=== PATIENT | male | born 1950 | race Caucasian/White ===

== ENCOUNTER 2016-08-22 11:42 | Day surgery (SDC) | payer MEDICARE, OTHER ==
[~2016-08-22] VITALS: Ht 185.4 cm; Wt 98.5 kg
[~2016-08-22 11:42] MED LIST: ASPIRIN 81M81 MG/TA2 PO; CIPRO 500MG TA500 MG PO; COQ10150 MG PO; CRESTOR 10MG10 MG PO; FLOMAX 0.40.4 MG/CAP PO; GLUCOSAMINE & C1 CA1 PO; MULTIPLE VITAMI1 CAP PO; PROSCAR 5MG5 MG PO
[2016-08-22 12:52] VITALS: BP 149/78; PULSE 77; TEMP 97.7
[2016-08-22] MEDS ORDERED: VITAMIN D32000 IU PO (13:02)
[2016-08-22] MEDS ORDERED: THE MEDICINE S200 M2 PO (13:04)
[2016-08-22] MEDS ORDERED: CIPRO 500MG TA500 MG PO (13:06)
[2016-08-22] MEDS ORDERED: PYRIDIUM 100MG100 MG PO (13:06)
[2016-08-22 17:45] VITALS: BP 133/72; PULSE 65
[2016-08-22 18:00] VITALS: BP 131/62; PULSE 67
[2016-08-22 18:15] VITALS: BP 130/70; PULSE 60
[2016-08-22 19:55] VITALS: BP 132/75; PULSE 73
[2016-08-22 21:51] VITALS: BP 128/64; PULSE 71; TEMP 97.6
[2016-08-23 01:35] VITALS: BP 109/64; PULSE 71; TEMP 97.7
[2016-08-23 04:56] VITALS: BP 114/62; PULSE 74; TEMP 98.2
[2016-08-23 09:28] VITALS: BP 124/73; PULSE 86; TEMP 98.1
[2016-08-23 14:28] VITALS: BP 120/54; PULSE 84; TEMP 98.2
== END 2016-08-23 14:38 | disposition home or self-care (01) ==
LOC: SDCO 11:42 → SURG 17:49 → SDCO 08-23 14:38
DX: N21.0 Calculus in bladder (principal); N40.1 Benign prostatic hyperplasia with lower urinary tract symptoms; R35.0 Frequency of micturition; R39.15 Urgency of urination; R39.12 Poor urinary stream; R97.20 Elevated prostate specific antigen [PSA]; Z85.51 Personal history of malignant neoplasm of bladder; E11.9 Type 2 diabetes mellitus without complications; E78.5 Hyperlipidemia, unspecified
CPT/HCPCS: J1100; J2405; J2704; J3010; J7120; Q9967

== ENCOUNTER 2020-10-17 15:34 | Day surgery (SDC) | payer MEDICARE, OTHER ==
[~2020-10-17] VITALS: Ht 185.4 cm; Wt 90.0 kg
[2020-10-17] VITALS (9 sets, daily range): BP systolic 149–198; BP diastolic 73–94; PULSE 66–91; TEMP 97.6–98.2
[~2020-10-17 15:34] MED LIST changes: +PYRIDIUM 100MG100 MG PO; +THE MEDICINE S200 M2 PO; +VITAMIN D32000 IU PO
[2020-10-17] MEDS ORDERED: THE MEDICINE S200 M2 PO (16:46)
[2020-10-17] MEDS ORDERED: VITAMIN C500 MG PO (16:50)
[2020-10-17] MEDS ORDERED: GLUCOPHAGE XR500 M1 PO (16:50)
[2020-10-17] MEDS ORDERED: VITAMIN D31000 IU PO (16:53)
[2020-10-17] MEDS ORDERED: NATURAL E400 IU PO (16:54)
[2020-10-17] MEDS ORDERED: FISH OIL 1000MG1 CAP PO (16:55)
[2020-10-17] MEDS ORDERED: PYRIDIUM 100MG100 MG PO (19:14)
[2020-10-17] MEDS ORDERED: NORCO 325 MG-51 TAB PO (19:14)
--- NOTE | 2020-10-17 20:00 | NUR ---
Patient up from PACU. No complaints of pain at this time. Blood pressure was 193/83 and then 207/83. Dr. Ayoub was notified. New orders for 10 mg of hydralazine and 20 mg of Lasix.
--- NOTE | 2020-10-17 22:00 | NUR ---
Patient's blood pressure has been coming down some. Patient is voiding without difficulty. Urine is red, no clots noted. Patient continent of loose stool. Percocet given for pain. 96% on room air. No other needs at this time.
[2020-10-18 03:59] VITALS: BP 139/78; PULSE 72; TEMP 97
--- NOTE | 2020-10-18 06:18 | NUR ---
PAtient reports still having some blood in his urine this morning. Percocet administered PRN for pain. No other needs at this time. Will report off to day shift.
[2020-10-18 07:27] VITALS: BP 145/67; PULSE 82; TEMP 98
--- NOTE | 2020-10-18 10:51 | NUR ---
Patient alert and oriented, answers questions appropriately. See assessment. Patient voiding moderate amounts of bloody urine, no clots noted. Encouraged oral intake. No c/o burning, frequency or hesitancy with urination. No c/o at this time.
[2020-10-18 11:10] VITALS: BP 173/82; PULSE 80; TEMP 97.5
--- NOTE | 2020-10-18 12:16 | NUR ---
First visit from the supervisor hot [employer]. No needs right now.
--- NOTE | 2020-10-18 13:58 | NUR ---
Discharge instructions reviewed with patient and spouse, verbalized understanding. Discharged via wheelchair to auto/home with spouse at 1358.
== END 2020-10-18 13:58 | disposition home or self-care (01) ==
LOC: SDCO 15:34 → SURG 20:10 → SDCO 10-18 13:58
DX: C67.4 Malignant neoplasm of posterior wall of bladder (principal); N20.2 Calculus of kidney with calculus of ureter; R31.21 Asymptomatic microscopic hematuria; E11.9 Type 2 diabetes mellitus without complications; E78.5 Hyperlipidemia, unspecified; Z86.010 Personal history of colon polyps; Z90.89 Acquired absence of other organs; Z79.82 Long term (current) use of aspirin; Z79.899 Other long term (current) drug therapy; Z79.84 Long term (current) use of oral hypoglycemic drugs; Z20.822 Contact with and (suspected) exposure to COVID-19
CPT/HCPCS: OP; C1769; C1894; C2617; J0360; J0690; J1100; J1940; J2405; J2704; J3010; J7120; Q9967

== ENCOUNTER 2022-02-06 15:30 | Observation (INO) | payer MEDICARE, OTHER ==
[~2022-02-06] VITALS: Ht 185.4 cm; Wt 81.4 kg
[~2022-02-06 15:30] MED LIST changes: +FISH OIL 1000MG1 CAP PO; +GLUCOPHAGE XR500 M1 PO; +NATURAL E400 IU PO; +NORCO 325 MG-51 TAB PO; +VITAMIN C500 MG PO; +VITAMIN D31000 IU PO
[2022-02-07] VITALS (11 sets, daily range): BP systolic 102–134; BP diastolic 48–62; PULSE 43–61; TEMP 97.7–98.9
[2022-02-07 10:11] LABS: CALCIUM 10.4 mg/dL (8.4-10.2); CREATININE, serum 1.27 mg/dL (0.72-1.25); POTASSIUM 4.2 mmol/L (3.5-4.5)
[2022-02-07] MEDS ORDERED: TYLENOL 500MG500 MG PO (11:02)
[2022-02-07] MEDS ORDERED: VITAMINC1000TA PO (11:03)
[2022-02-07] MEDS ORDERED: COREG 6.256.25 MG/TA PO (11:04)
[2022-02-07] MEDS ORDERED: JARDIANCE10 PO (11:05)
[2022-02-07] MEDS ORDERED: MELATONIN5 M1 PO (11:06)
[2022-02-07] MEDS ORDERED: GLUCOPHAGE500 MG/TAB PO (11:08)
[2022-02-07] MEDS ORDERED: CORLANOR5 MG PO (11:08)
[2022-02-07] MEDS ORDERED: JOINT RELIEF PO (11:09)
[2022-02-07] MEDS ORDERED: SINGULAIR 110 MG/TAB PO (11:10)
[2022-02-07] MEDS ORDERED: MULTI VITAMINS1 TAB PO (11:11)
[2022-02-07] MEDS ORDERED: NITROSTAT0.4 MG/TAB SL (11:13)
[2022-02-07] MEDS ORDERED: CRESTOR40 MG PO (11:14)
[2022-02-07] MEDS ORDERED: ENTRESTO 24 MG1 EACH PO (11:15)
[2022-02-07] MEDS ORDERED: ALDACTONE 25MG25 M1 PO (11:16)
[2022-02-07] MEDS ORDERED: BRILINTA90 MG PO (11:17)
[2022-02-07] MEDS ORDERED: THE MEDICINE S200 M2 PO (11:20)
--- NOTE | 2022-02-07 12:20 | NUR ---
PATIENT ADMITED INTO ROOM 331 POST OP. ORIENTED BUT DROWSY. NOTED HR IN 40-50'S ON TELE. PATIENT HAS HX OF CHF. ALL OTHER VSS. DENIES COMPLAINTS. LIQUIDS AT BEDSIDE. IV FLUIDS INFUSING VIA PUMP INTO LEFT HAND IV. DAVE TO DD WITH SMALL AMOUNTS OF CLEAR YELLOW URINE. CBI INFUSING AT MOD RATE. SCD'S TO BLE. HEAD TO TOE ASSESSMENT COMPLETE. AT BEDSIDE. ORIENTED TO ROOM. CALL LIGHT IN REACH.
--- NOTE | 2022-02-07 13:30 | NUR ---
AT BEDSIDE, SEE ORDERS.
--- NOTE | 2022-02-07 16:55 | NUR ---
CALLED AND REQUESTED PATIENT BE STARTED ON HEPARIN GTT AT 900 UNITS/HR. NO BOLUS. NO LABS PRIOR. RECHECK COAGULATION 4 HOURS AFTER STARTING GTT THEN, START LOW DOSE HEPARIN GTT PROTOCOL. CALLED AND TALKED WITH PHARMACY. CALLED AND CLARIFIED ORDERS WITH CARDIOLOGY AGAIN. TALKED WITH BINDER LOCKSTITCH. SEE ORDERS.
--- NOTE | 2022-02-07 19:34 | NUR ---
RECEIVED CHANGE OF SHIFT REPORT FROM DAY SHIFT RN.
[2022-02-08 03:14] VITALS: BP 105/50; PULSE 56; TEMP 97.6
--- NOTE | 2022-02-08 06:54 | NUR ---
CHANGE OF SHIFT REPORT GIVEN TO DAY SHIFT RNMIRIAM.
[2022-02-08 07:40] VITALS: BP 110/60; PULSE 59; TEMP 98.3
--- NOTE | 2022-02-08 08:00 | NUR ---
PATIENT IS A&O. VSS ON TELE. DENIES COMPLAINTS. DAVE TO DD WITH MOD AMOUNTS OF CLEAR YELLOW URINE. CBI DC'D PER UROLOGY. ALSO DC'D HEPARIN GTT AND RESTARTED PATIENT'S HOME ANTICOAGULATION THERAPY PER UROLOGY & CARDS, SEE MAR. NO C/O N/V. LEFT HAND IV TO INT. HEAD TO TOE ASSESSMENT WNL. AM MEDS GIVEN. BREAKFAST TRAY AT BEDSIDE. SCD'S TO BLE. PATIENT IS INDEPENDENT IN ROOM. CALL LIGHT IN REACH.
--- NOTE | 2022-02-08 10:52 | NUR ---
structural steel ironworker met with patient to complete intake and discuss discharge plan. Patient reports that he lives at home in [place] with his Symone ([phone]). Patient states that they also have a house here at the [place] and will be staying there through the weekend. Patient is independent with his ADL's and does not utilize any DME to assist with mobility. He reports that he had "complete heart failure" on November and underwent a stent placement. He has also had multiple bladder tumors in the past but is not currently on chemo or seeing an oncologist. He has no home oxygen needs. PCP is Dr.Tyson Ortez and he utilizes [facility] for a local pharmacy and [facility] for prescriptions. 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 Patient is planning on returning home once medically ready. Discharge plan: Home
--- NOTE | 2022-02-08 11:02 | NUR ---
Initial visit; Patient thanked Career Representative for looking in on him and talking. Patient expressed his avid belief in God's miracles to which he testifies in his life of how he has been saved from and ill health many times. He is very kind and continues on his journey with a family who loves him dearly.
[2022-02-08 11:51] VITALS: BP 121/61; PULSE 57; TEMP 98.4
[2022-02-08 15:18] VITALS: BP 107/55; PULSE 62; TEMP 98
--- NOTE | 2022-02-08 18:58 | NUR ---
RECEIVED CHANGE OF SHIFT REPORT FROM DAY SHIFT RN.
[2022-02-08 19:43] VITALS: BP 114/56; PULSE 67; TEMP 97.9
--- NOTE | 2022-02-08 20:59 | NUR ---
PATIENT REQUESTING NOT TO BE AWAKEN FOR MIDNIGHT DOSE OF TYLENOL AND WILL TAKE 0600 AM TYLENOL.
[2022-02-08 23:54] VITALS: BP 124/54; PULSE 59; TEMP 98.2
[2022-02-09 04:31] VITALS: BP 130/67; PULSE 72; TEMP 99.2
--- NOTE | 2022-02-09 07:09 | NUR ---
CHANGE OF SHIFT REPORT GIVEN TO DAY SHIFT RNGUS.
--- NOTE | 2022-02-09 07:30 | NUR ---
Pt resting in bed upon entering room. He has ordered breakfast. Dr Ayoub has been in, orders to remove enriquez and start 6 cup routine. Enriquez catheter discontinued and gave pt a urinal to use to void in to monitor output. Pt verbalized understanding. Plan is for pt to go home late morning or early afternoon if voiding well. No pain complaints, will continue to monitor
[2022-02-09 07:34] VITALS: BP 132/56; PULSE 64; TEMP 98.5
--- NOTE | 2022-02-09 10:20 | NUR ---
Follow-up visit; Patient thanked Science Professor for checking up on him again today and was receptive to Science Professor offering prayer and God's blessings for continued healing. Patient spoke of his 'miraculous' experience again and has myrtle abounding.
--- NOTE | 2022-02-09 10:25 | NUR ---
Pt has voided x4, with clear pink tinged output. Last void was yellow. Reviewed discharg isntructions with pt to include follow up appointment. Notified tele and INT removed.
--- NOTE | 2022-02-09 10:45 | NUR ---
Pt escorted out at this time
== END 2022-02-09 10:45 | disposition home or self-care (01) ==
LOC: SURG 02-07 08:23 → SDCO 02-07 08:23 → EDSTATUS 02-07 10:30 → SDCO 02-07 12:20 → SURG 02-07 12:20 → SDCO 02-09 10:45 → SURG 02-09 10:45
PROVIDERS: Registered Nurse; ADMIT Urology
DX: N30.80 Other cystitis without hematuria (principal)
CPT/HCPCS: OP; A9270; G0378; J0690; J1644; J2704; J3010; J7120